=== PATIENT | female | born 1950 | race Caucasian/White ===

== ENCOUNTER 2018-01-20 08:17 | Emergency (ER) | payer MEDICARE, BC ==
[2018-01-20] MEDS ORDERED: Ketorolac Tromethamine 30 MG/ML VIAL ONE (08:55)
== END 2018-01-20 09:25 | disposition home or self-care (01) ==
LOC: BURERS 08:17
DX: M54.5 Low back pain (principal); E11.9 Type 2 diabetes mellitus without complications; I25.2 Old myocardial infarction; F31.9 Bipolar disorder, unspecified
CPT/HCPCS: 96372; J1885